=== PATIENT | female | born 1940 | race Caucasian/White ===

== ENCOUNTER → 2017-09-05 10:11 | Outpatient (CLI) | payer MEDICARE ==
[2017-09-05 10:45] LABS: BASOPHILS 0.2 % (0-2); EOSINOPHILS 1.5 % (0-7); HEMATOCRIT 42.9 % (36.0-48.0); HEMOGLOBIN 14.1 g/dL (12-16); IMMATURE GRANULOCYTES 0.4 % (0-5); LYMPHOCYTES 35.8 % (15-50); MCH 31.5 pg (26.0-34.0); MCHC 32.9 g/dL (31.0-37.0); MCV 95.8 fL (80.0-100.0); MEAN PLATELET VOLUME 9.6 fL (7.4-10.4); NEUTROPHILS 51.1 % (40-80); PLATELET COUNT 203 10x3/uL (130-400); RBC 4.48 10x6/uL (4.00-5.40); RDW 13.1 % (11.5-14.5); WBC 4.5 10x3/uL (4.8-10.8)
== END | disposition home or self-care (01) ==
LOC: D.LAB 08:00
PROVIDERS: Family Medicine
DX: D72.829 Elevated white blood cell count, unspecified (principal)

== ENCOUNTER → 2017-11-21 07:19 | Outpatient (CLI) | payer MEDICARE | END | disposition home or self-care (01) | LOC: D.US 11-20 10:00 | DX: R10.32 Left lower quadrant pain (principal) ==

== ENCOUNTER → 2018-01-09 14:43 | Outpatient (CLI) | payer MEDICARE | END | disposition home or self-care (01) | LOC: D.CT 14:43 | DX: R10.30 Lower abdominal pain, unspecified (principal) ==

== ENCOUNTER → 2018-02-08 11:28 | Outpatient (CLI) | payer MEDICARE | END | disposition home or self-care (01) | LOC: D.RAD 11:28 | DX: R05 Cough (principal) ==

== ENCOUNTER → 2018-04-30 08:54 | Outpatient (CLI) | payer MEDICARE ==
[2018-04-30 10:19] LABS: BASOPHILS 0.2 % (0-2); EOSINOPHILS 3.1 % (0-7); HEMATOCRIT 41.2 % (36.0-48.0); HEMOGLOBIN 13.7 g/dL (12-16); IMMATURE GRANULOCYTES 0.2 % (0-5); MCHC 33.3 g/dL (31.0-37.0); MCV 96.3 fL (80.0-100.0); MEAN PLATELET VOLUME 9.4 fL (7.4-10.4); MONOCYTES 9.5 % (2-11); PLATELET COUNT 207 10x3/uL (130-400); RBC 4.28 10x6/uL (4.00-5.40); RDW 12.9 % (11.5-14.5); WBC 4.8 10x3/uL (4.8-10.8)
[2018-04-30 10:39] LABS: ALBUMIN 3.8 g/dL (3.4-5.0); BILIRUBIN - DIRECT 0.12 mg/dL (0.00-0.30); BILIRUBIN - INDIRECT 0.54 mg/dL (0.00-1.00); BILIRUBIN - TOTAL 0.66 mg/dL (0.2-1.3); PROTEIN - SERUM 6.8 g/dL (6.4-8.2)
== END | disposition home or self-care (01) ==
LOC: D.US 08:54
PROVIDERS: Internal Medicine Gastroenterology
DX: R93.89 Abnormal findings on diagnostic imaging of other specified body structures (principal); K83.8 Other specified diseases of biliary tract; R14.0 Abdominal distension (gaseous); R14.2 Eructation

== ENCOUNTER → 2019-02-14 10:23 | Outpatient (CLI) | payer MEDICARE ==
[2019-02-14 11:08] LABS: T4 THYROXIN - FREE 1.39 ng/dL (0.76-1.46); THYROID STIMULATING HORMONE 0.83 uIU/mL (0.36-3.74)
== END | disposition home or self-care (01) ==
LOC: D.LAB 10:23
PROVIDERS: ATTEND Internal Medicine Endocrinology, Diabetes & Metabolism
DX: E89.0 Postprocedural hypothyroidism (principal); R23.2 Flushing